=== PATIENT | female | born 1960 | race African-American/Black ===

== ENCOUNTER 2017-10-08 10:05 | Inpatient (IN) | payer BC, OTHER ==
[2017-10-08 10:41] LABS: ADD MAN DIFF? NO
[2017-10-08 10:45] LABS: BASO % 1 % (0-3); EOS # 0.2 x10^3/uL (0.0-0.7); EOS % 5 % (0-3); HEMATOCRIT 39.6 % (36.0-47.0); HEMOGLOBIN 13.2 g/dL (12.0-15.5); LYMPH # 2.5 x10^3/uL (1.0-4.8); LYMPH % 48 % (24-48); MEAN CORPUSCULAR HEMOGLOBIN 30 pg (25-35); MEAN CORPUSCULAR HGB CONC 34 g/dL (31-37); MEAN CORPUSCULAR VOLUME 90 fL (79-100); MONO # 0.3 x10^3/uL (0.0-1.1); MONO % 7 % (0-9); NEUT % 40 % (31-73); PLATELET COUNT 199 x10^3/uL (140-400); RED CELL DISTRIBUTION WIDTH 14.9 % (11.5-14.5); WHITE BLOOD COUNT 5.1 x10^3/uL (4.0-11.0)
[2017-10-08 10:52] LABS: ANION GAP 10 (6-14); BLOOD UREA NITROGEN 15 mg/dL (7-20); BUN/CREATININE RATIO 14 (6-20); CALCIUM 9.5 mg/dL (8.5-10.1); CARBON DIOXIDE 29 mmol/L (21-32); CHLORIDE 101 mmol/L (98-107); CREATININE 1.1 mg/dL (0.6-1.0); GFR 61.7; GLUCOSE 136 mg/dL (70-99); POTASSIUM 3.5 mmol/L (3.5-5.1); SODIUM 140 mmol/L (136-145)
[2017-10-08 10:58] LABS: ALBUMIN 3.8 g/dL (3.4-5.0); ALBUMIN/GLOBULIN RATIO 0.9 (1.0-1.7); ALK PHOS 79 U/L (46-116); ALT (SGPT) 23 U/L (14-59); AST (SGOT) 21 U/L (15-37); MAGNESIUM 1.7 mg/dL (1.8-2.4); TOTAL BILIRUBIN 0.4 mg/dL (0.2-1.0); TOTAL PROTEIN 8.1 g/dL (6.4-8.2)
[2017-10-08 11:01] LABS: TROPONINI < 0.017 ng/mL (0.000-0.055)
[2017-10-08 11:07] LABS: CKMB INDEX 0.7 % (0-4); CREATINE KINASE 144 U/L (26-192)
[2017-10-08 11:07] LABS: NT-PRO BNP 42 pg/mL (0-124)
[2017-10-08] MEDS: fentaNYL PF VIAL 100 MCG/2 ML VIAL IV (11:14)
[2017-10-08] MEDS: ONDANSETRON PF 4 MG/2 ML VIAL. IV (11:15)
[2017-10-08] MEDS: IV NORMAL SALINE 1000ML BAG 1,000 ML IV ×2 (11:16→13:00)
[2017-10-08 11:17] LABS: BILIRUBIN,URINE NEGATIVE (NEG); CLARITY,URINE CLEAR; COLOR,URINE YELLOW; GLUCOSE,URINE NEGATIVE (NEG); NITRITE,URINE NEGATIVE (NEG); PROTEIN,URINE NEGATIVE (NEG-TRACE); UROBILINOGEN,URINE 0.2 mg/dL (0.2 mg/dL)
[2017-10-08 11:49] LABS: BACTERIA,URINE FEW /HPF (0-FEW); RBC,URINE OCC /HPF (0-2); SQUAMOUS EPITHELIAL CELL,UR MANY /LPF; WBC,URINE OCC /HPF (0-4)
[2017-10-08] MEDS ORDERED: ACETAMINOPHEN 325 MG TABLET. PO (12:30)
[2017-10-08] MEDS ORDERED: fentaNYL PF VIAL 100 MCG/2 ML VIAL IV (12:30)
[2017-10-08] MEDS ORDERED: ONDANSETRON PF 4 MG/2 ML VIAL. IV (12:30)
[2017-10-08 16:23] LABS: TROPONINI < 0.017 ng/mL (0.000-0.055)
[2017-10-08 18:39] LABS: TROPONINI < 0.017 ng/mL (0.000-0.055)
[2017-10-09] MEDS: IV NORMAL SALINE 1000ML BAG 1,000 ML IV (02:40)
[2017-10-09 06:17] LABS: ADD MAN DIFF? NO
[2017-10-09 06:25] LABS: BASO % 1 % (0-3); EOS # 0.2 x10^3/uL (0.0-0.7); EOS % 5 % (0-3); HEMATOCRIT 39.2 % (36.0-47.0); LYMPH # 2.5 x10^3/uL (1.0-4.8); LYMPH % 55 % (24-48); MEAN CORPUSCULAR HEMOGLOBIN 30 pg (25-35); MEAN CORPUSCULAR HGB CONC 33 g/dL (31-37); MEAN CORPUSCULAR VOLUME 91 fL (79-100); MONO # 0.4 x10^3/uL (0.0-1.1); MONO % 8 % (0-9); NEUT # 1.4 x10^3uL (1.8-7.7); NEUT % 31 % (31-73); PLATELET COUNT 204 x10^3/uL (140-400); RED BLOOD COUNT 4.33 x10^6/uL (3.50-5.40); RED CELL DISTRIBUTION WIDTH 15.4 % (11.5-14.5); WHITE BLOOD COUNT 4.6 x10^3/uL (4.0-11.0)
[2017-10-09 06:46] LABS: ANION GAP 8 (6-14); BLOOD UREA NITROGEN 13 mg/dL (7-20); CALCIUM 8.9 mg/dL (8.5-10.1); CARBON DIOXIDE 29 mmol/L (21-32); CHLORIDE 107 mmol/L (98-107); CREATININE 1.2 mg/dL (0.6-1.0); GFR 55.8; GLUCOSE 96 mg/dL (70-99); POTASSIUM 3.2 mmol/L (3.5-5.1); SODIUM 144 mmol/L (136-145)
[2017-10-09] MEDS: REGADENOSON 0.4 MG/5 ML DISP.SYRIN. IV (09:13)
== END 2017-10-09 17:00 | disposition home or self-care (01) ==
LOC: ER 10:05 → 6 SOUTH 11:56
DX: R07.89 Other chest pain (principal); Z68.41 Body mass index [BMI] 40.0-44.9, adult; I10 Essential (primary) hypertension; E66.9 Obesity, unspecified; Z79.899 Other long term (current) drug therapy
CPT/HCPCS: 36415; 71045; 78452; 80048; 80053; 81001; 82553; 83735; 83880; 84484; 85025; 93005; 93017; 96361; 96374; 96375; 99285; 99285-25; A9500; J2405; J2785; J3010; J7030

== ENCOUNTER 2021-10-13 00:54 | Emergency (ER) | payer OTHER ==
[2017-10-09 15:00] VITALS: BP 119/65
[~2021-10-13 00:54] MED LIST: LISI1TAB39 PO; NIFE30TA95 PO; TERA10CA3 PO
--- NOTE | 2021-10-13 04:58 | PHYS DOC ---
Past Medical History Past Medical History: Hypertension Past Surgical History: No Surgical History Smoking Status: Never Smoker Alcohol Use: Rarely Drug Use: None Adult General Chief Complaint Chief Complaint: DIZZY/LIGHT HEADED HPI HPI Patient is a 60 year old [f__sex] who presents with [] Review of Systems Review of Systems Constitutional: Denies fever or chills [] Eyes: Denies change in visual acuity, redness, or eye pain [] HENT: Denies nasal congestion or sore throat [] Respiratory: Denies cough or shortness of breath [] Cardiovascular: No additional information not addressed in HPI [] GI: Denies abdominal pain, nausea, vomiting, bloody stools or diarrhea [] : Denies dysuria or hematuria [] Musculoskeletal: Denies back pain or joint pain [] Integument: Denies rash or skin lesions [] Neurologic: Denies headache, focal weakness or sensory changes [] Endocrine: Denies polyuria or polydipsia [] All other systems were reviewed and found to be within normal limits, except as documented in this note. Allergies Allergies Allergies Coded Allergies Type Severity Reaction Last Updated Verified No Known Drug Allergies 10/08/17 No Physical Exam Physical Exam Constitutional: Well developed, well nourished, no acute distress, non-toxic appearance. [] HENT: Normocephalic, atraumatic, bilateral external ears normal, oropharynx moist, no oral exudates, nose normal. [] Eyes: PERRLA, EOMI, conjunctiva normal, no discharge. [] Neck: Normal range of motion, no tenderness, supple, no stridor. [] Cardiovascular:Heart rate regular rhythm, no murmur [] Lungs & Thorax: Bilateral breath sounds clear to auscultation [] Abdomen: Bowel sounds normal, soft, no tenderness, no masses, no pulsatile masses. [] Skin: Warm, dry, no erythema, no rash. [] Back: No tenderness, no CVA tenderness. [] Extremities: No tenderness, no cyanosis, no clubbing, ROM intact, no edema. [] Neurologic: Alert and oriented X 3, normal motor function, normal sensory function, no focal deficits noted. [] Psychologic: Affect normal, judgement normal, mood normal. [] EKG EKG [] Radiology/Procedures Radiology/Procedures [] Course & Med Decision Making Course & Med Decision Making Pertinent Labs and Imaging studies reviewed. (See chart for details) [] Dragon Disclaimer Dragon Disclaimer This electronic medical record was generated, in whole or in part, using a voice recognition dictation system. Departure Departure Referrals: Conrad GUARDADO MD (PCP) LUKE JONES MD Oct 13, 2021 01:04
[2021-10-13 06:56] LABS: ALBUMIN 4.3 g/dL (3.4-5.0); CALCIUM 9.6 mg/dL (8.5-10.1); CREATININE 1.2 mg/dL (0.6-1.0); GFR 55.1; POTASSIUM 3.5 mmol/L (3.5-5.1); TOTAL BILIRUBIN 0.3 mg/dL (0.2-1.0); TOTAL PROTEIN 8.6 g/dL (6.4-8.2)
[2021-10-13 07:44] LABS: BASO % 1 % (0-3); EOS # 0.2 x10^3/uL (0.0-0.7); EOS % 3 % (0-3); HEMATOCRIT 39.9 % (36.0-47.0); HEMOGLOBIN 13.5 g/dL (12.0-15.5); LYMPH # 1.6 x10^3/uL (1.0-4.8); LYMPH % 33 % (24-48); MEAN CORPUSCULAR HEMOGLOBIN 30 pg (25-35); MEAN CORPUSCULAR HGB CONC 34 g/dL (31-37); MEAN CORPUSCULAR VOLUME 89 fL (79-100); MONO # 0.3 x10^3/uL (0.0-1.1); MONO % 7 % (0-9); NEUT # 2.7 x10^3/uL (1.8-7.7); NEUT % 57 % (31-73); PLATELET COUNT 237 x10^3/uL (140-400); RED BLOOD COUNT 4.49 x10^6/uL (3.50-5.40); RED CELL DISTRIBUTION WIDTH 14.1 % (11.5-14.5); WHITE BLOOD COUNT 4.8 x10^3/uL (4.0-11.0)
--- NOTE | 2021-10-13 08:19 | RAD ---
Exam Date: 10/13/2021 1:40 AM XR CHEST 1V Indication: Reason: CHEST PAIN / Spl. Instructions: / History: . Comparison: October 08, 2017 FINDINGS/ IMPRESSION: The cardiac silhouette and pulmonary vasculature are within normal limits. There is no focal consolidation, pleural effusion or pneumothorax. The visualized osseous structures are intact. Electronically signed by: Bola Love MD (10/13/2021 8:17 AM) ALEX
[2021-10-13 08:42] LABS: BACTERIA,URINE MODERATE /HPF (0-FEW); HYALINE CASTS, URINE MODERATE /HPF; RBC,URINE OCC /HPF (0-2)
== END 2021-10-13 04:20 | disposition home or self-care (01) ==
LOC: ER 00:54
DX: R42 Dizziness and giddiness (principal); I10 Essential (primary) hypertension
CPT/HCPCS: 36415; 71045; 80053; 81001; 84484; 85025; 87086; 99284

== ENCOUNTER 2021-11-15 07:57 | Day surgery (SDC) | payer OTHER ==
[~2021-11-15] VITALS: Ht 157.5 cm; Wt 126.8 kg
[~2021-11-15 07:57] MED LIST changes: +ASPI-630 PO; +BLAC40CA PO; +CHOL400T55 PO; +CRAN200C2 PO; +HYDROmorphone 2 MG/ML INJ. IVP PRN; +IV RINGERS,LACTATED 1000ML 1,000 ML IV SCH; +MAGN250T10 PO; +MORPHINE SULFATE 2 MG/ML INJ. IVP PRN; +MULT-691 PO; +PROCHLORPERAZINE 10 MG/2 ML VIAL. IVP PRN; +beet root PO; +fentaNYL PF VIAL 100 MCG/2 ML VIAL IVP PRN
[2021-11-15 08:31] VITALS: BP 139/72
[2021-11-15 08:47] LABS: BASO # 0.1 x10^3/uL (0.0-0.2); BASO % 1 % (0-3); EOS # 0.3 x10^3/uL (0.0-0.7); EOS % 6 % (0-3); HEMATOCRIT 39.1 % (36.0-47.0); HEMOGLOBIN 13.3 g/dL (12.0-15.5); LYMPH % 55 % (24-48); MEAN CORPUSCULAR HEMOGLOBIN 31 pg (25-35); MEAN CORPUSCULAR HGB CONC 34 g/dL (31-37); MEAN CORPUSCULAR VOLUME 90 fL (79-100); MONO # 0.4 x10^3/uL (0.0-1.1); MONO % 7 % (0-9); NEUT # 1.6 x10^3/uL (1.8-7.7); NEUT % 30 % (31-73); PLATELET COUNT 233 x10^3/uL (140-400); RED BLOOD COUNT 4.32 x10^6/uL (3.50-5.40); RED CELL DISTRIBUTION WIDTH 14.6 % (11.5-14.5); WHITE BLOOD COUNT 5.4 x10^3/uL (4.0-11.0)
--- NOTE | 2021-11-15 09:12 | PDOC1 ---
[facility] H&P Date of Admission: Date of Admission: History of Present Illness: 61y presents for scheduled surgery. The pt had the EMB performed for PMB. The pt was informed that the pathology revealed: Scant detached fragments of superficial endometrial tissue and single cells with severe cytologic atypia. Explained that pathologist did not define this as CA, but when they called they recommended getting a large specimen. Explained that would mean performing a H/S, D&C. 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 Alert and oriented. HEENT: Head normocephalic, atraumatic. NECK: Supple LUNGS: Clear to auscultation. HEART: RRR, S1, S2 present, pulses intact ABDOMEN: Soft, positive bowel sounds. EXTREMITIES: No cyanosis or edema. NEUROLOGIC: Normal speech, normal tone PSYCHIATRIC: Normal affect, normal mood. SKIN: No ulceration. Labs: Laboratory Tests Test 11/15/21 08:35 White Blood Count 5.4 x10^3/uL (4.0-11.0) Red Blood Count 4.32 x10^6/uL (3.50-5.40) Hemoglobin 13.3 g/dL (12.0-15.5) Hematocrit 39.1 % (36.0-47.0) Mean Corpuscular Volume 90 fL (79-100) Mean Corpuscular Hemoglobin 31 pg (25-35) Mean Corpuscular Hemoglobin Concent 34 g/dL (31-37) Red Cell Distribution Width 14.6 % (11.5-14.5) H Platelet Count 233 x10^3/uL (140-400) Neutrophils (%) (Auto) 30 % (31-73) L Lymphocytes (%) (Auto) 55 % (24-48) H Monocytes (%) (Auto) 7 % (0-9) Eosinophils (%) (Auto) 6 % (0-3) H Basophils (%) (Auto) 1 % (0-3) Neutrophils # (Auto) 1.6 x10^3/uL (1.8-7.7) L Lymphocytes # (Auto) 3.0 x10^3/uL (1.0-4.8) Monocytes # (Auto) 0.4 x10^3/uL (0.0-1.1) Eosinophils # (Auto) 0.3 x10^3/uL (0.0-0.7) Basophils # (Auto) 0.1 x10^3/uL (0.0-0.2) Laboratory Tests 11/15/21 08:35 Laboratory Tests 11/15/21 08:35 Assessment & Plan: A/P 61y with PMB 1.) PMB - EMB revealing severe cytologic atypia. Will scheduled for H/S, D&C 2.) HTN - per PCP EVAN LAYTON MD November 15, 2021 09:12
[2021-11-15] MEDS ORDERED: DEXAMETHASONE SOD PHOS 4 MG/ML VIAL ONE (09:19)
[2021-11-15] MEDS ORDERED: SEVOFLURANE 31 TO 60 MINUTES. IH ONE (09:19)
[2021-11-15] MEDS ORDERED: ONDANSETRON PF 4 MG/2 ML VIAL. ONE (09:19)
[2021-11-15] MEDS ORDERED: LIDOCAINE 2% PF 5 ML VIAL. ONE (09:19)
[2021-11-15] MEDS ORDERED: PROPOFOL 10 MG/ML (20ML) VIAL. IV ONE (09:19)
[2021-11-15] MEDS ORDERED: KETOROLAC 30 MG/ML VIAL. ONE (09:19)
[2021-11-15] MEDS ORDERED: SCOPOLAMINE 1.5MG PATCH. TD ONE (09:44)
[2021-11-15] MEDS ORDERED: IBUP-1060 PO (10:51)
[2021-11-15] MEDS ORDERED: OXYC1TAB15 PO (10:52)
[2021-11-15] MEDS ORDERED: oxyCODONE/APAP 5/325 1 TAB TABLET PO ONE (11:15)
--- NOTE | 2021-11-15 11:20 | PDOC4 ---
OPERATIVE NOTE: PreOp Dx: 1.) PMB, 2.) EMB revealing severe cytologic atypia, 3.) HTN PostOp Dx: same Procedure: H/S, D&C Surgeon: Daisha Layton Anesthesia: GETA EBL: 50 cc Findings: large polyp taking up most of the endometrial cavity arising from the right fundal region. Complications: none Path: endometrial curettage EVAN LAYTON MD November 15, 2021 11:20
[2021-11-15 11:51] VITALS: BP 121/67
--- NOTE | 2021-11-15 12:22 | OP ---
DATE OF SURGERY: 11/15/2021 PREOPERATIVE DIAGNOSES: 1. Postmenopausal bleeding. 2. Endometrial biopsy revealing severe cytologic atypia. 3. Hypertension. POSTOPERATIVE DIAGNOSES: 1. Postmenopausal bleeding. 2. Endometrial biopsy revealing severe cytologic atypia. 3. Hypertension. PROCEDURES: Hysteroscopy, D and C. SURGEON: Malcolm Schroeder MD ANESTHESIA: General endotracheal intubation. ESTIMATED BLOOD LOSS: 50 mL FINDINGS: Large polyp taking up most of the endometrial cavity arising from the right fundal region. COMPLICATIONS: None. PATHOLOGY: Endometrial curetting. DESCRIPTION OF PROCEDURE: The patient was taken to the operating room where general endotracheal intubation was obtained without difficulty. The patient was prepped and draped in normal sterile fashion. A speculum was placed in the patient's vagina to visualize the cervix. The anterior lip of the cervix was then grasped with a single tooth tenaculum. At that point, the cervix was dilated to allow for the hysteroscope to be placed. Once the hysteroscope was placed, the patient was found to have a large polyp consuming most of her endometrial cavity. The polyp did not appear to be malignant, but based on the previous endometrial biopsy, there were concerns. At that point, the hysteroscope was removed and a curetting was then performed until gritty texture was felt in all 4 quadrants. The specimen was then sent to pathology. Once completed, the single tooth tenaculum was removed. Minimal bleeding was noted at the tenaculum site. Good hemostasis was noted. At that point, the patient was taken to recovery room in stable condition. JUANIS DR: Antelmo TID: [id number]
== END 2021-11-15 12:34 | disposition home or self-care (01) ==
LOC: SURG 07:57
PROVIDERS: ATTEND Obstetrics & Gynecology
DX: N95.0 Postmenopausal bleeding (principal); I10 Essential (primary) hypertension; Z79.82 Long term (current) use of aspirin; Z72.89 Other problems related to lifestyle; Z98.890 Other specified postprocedural states
CPT/HCPCS: 31500; 36415; 58558; 85025; 86850; 86900; 86901; A4930; J1100; J1885; J2405; J2704